=== PATIENT | male | born 1960 | race Caucasian/White ===

== ENCOUNTER 2017-08-28 07:32 | Day surgery (SDC) | payer OTHER ==
[2017-08-20 11:06] VITALS: BMI 28.7
--- NOTE | 2017-08-28 07:26 | HP ---
History & Physical Update - History History: No Change - Physical Physical: No Change - Assessment Assessment: No Change - Plan Plan: No Change
[2017-08-28] MEDS ORDERED: LIDOCAINE HCL/PF 2% SDV 5ML VIAL ONE (08:46)
[2017-08-28] MEDS ORDERED: PROPOFOL 20 ML ONE ×6 (08:46→12:05)
[2017-08-28] MEDS ORDERED: BUPIVACAINE HCL/EPINEPHRINE/PF 30 ML VIAL IJ ONE (10:06)
[2017-08-28] MEDS ORDERED: MIDAZOLAM HCL 2 MG/2 ML SINGLE DOSE VIAL ONE ×2 (10:17)
[2017-08-28] MEDS ORDERED: KETOROLAC TROMETHAMINE 30 MG/1 ML VIAL ONE (10:17)
[2017-08-28] MEDS ORDERED: fentaNYL CITRATE 250 MCG/5 ML VIAL ONE (10:17)
[2017-08-28] MEDS ORDERED: DEXAMETHASONE SOD PHOSPHATE 4 MG/1 ML VIAL ONE (10:17)
[2017-08-28] MEDS ORDERED: ONDANSETRON 4 MG/2 ML VIAL ONE (10:17)
[2017-08-28] MEDS ORDERED: SCOPOLAMINE HYDROBROMIDE 1 PATCH PATCH.TD72 ONE (10:37)
[2017-08-28] MEDS ORDERED: ceFAZolin SODIUM 1 GM VIAL ONE (10:50)
[2017-08-28] MEDS ORDERED: TRANEXAMIC ACID 1000 MG/10 ML VIAL ONE (10:54)
[2017-08-28] MEDS ORDERED: oxyCODONE HCL 5 MG TABLET PO PRN ×2 (12:22→13:06)
--- NOTE | 2017-08-28 12:26 | DS ---
Physical Examination Vital Signs: Vital Signs Temperature 97.9 F 08/28/17 08:07 Pulse Rate 69 08/28/17 08:07 Respiratory Rate 17 08/28/17 08:07 Blood Pressure 151/96 08/28/17 08:07 O2 Sat by Pulse Oximetry (%) 98 08/28/17 08:07 Discharge Summary Reason For Visit: RIGHT ULNAR NERVE DOUBLE CRUSH SYNDROME Condition: Good - Instructions Diet, Activity, Other Instructions: Try to stay in the sling. Keep the fingers moving. You may do sweet potato disintegrator exercises. Call the office to for an appointment to remove the splint in 10-12 days. Disposition: HOME - Home Medications Comprehensive Discharge Medication List: Ambulatory Orders Ibuprofen [Advil -] 600 mg PO HS PRN 03/07/15 Irbesartan/Hydrochlorothiazide [Avalide 150-12.5 mg Tablet] 0.5 each PO DAILY Amlodipine Besylate [Norvasc -] 5 mg PO HS 08/20/17
--- NOTE | 2017-08-28 12:26 | OP ---
Operative Note - Note: Operative Date: 08/28/17 Pre-Operative Diagnosis: right cubutal tunnel syndrome Operation: right cubital tunnel release Post-Operative Diagnosis: Same as Pre-op Surgeon: Donte Goldstein Press Shop Supervisor: Susan Zavala Anesthesia: General
[2017-08-28] MEDS ORDERED: oxyCODONE HCL 5 MG TABLET ONE (12:32)
--- NOTE | 2017-08-28 12:33 | SURG ---
Surgery Hop Strainer Note Hop Strainer: Susan Zavala PA-C Date of Service: 08/28/17 Diagnosis: right unlar nerve entrapment Procedure: right ulnar nerve decompression and transposition. I was present for the entirety of the operative procedure. For further detail, please refer to operative report. Visit type - Case Type Case Type: Scheduled Admission - Emergency Emergency Visit: No - New patient This patient is new to me today: Yes Date on this admission: 08/28/17
[2017-08-28] MEDS ORDERED: ACETAMINOPHEN 325 MG TABLET (FP) PO PRN (13:06)
[2017-08-28] MEDS ORDERED: ONDANSETRON 4 MG/2 ML VIAL IVPUSH PRN (13:06)
[2017-08-28] MEDS ORDERED: LACTATED RINGERS SOLUTION 1,000 ML IV SCH (13:15)
[2017-08-28 13:26] VITALS: TEMP 97.5
[2017-08-28 13:36] VITALS: BP 137/78; PULSE 70
== END 2017-08-28 13:30 | disposition home or self-care (01) ==
LOC: FASU 07:32
PROVIDERS: ATTEND Orthopaedic Surgery
PROC: 01N40ZZ Release Ulnar Nerve, Open Approach (ICD-10-PCS; principal; 2017-08-28 11:03)
DX: G56.21 Lesion of ulnar nerve, right upper limb (principal)